=== PATIENT | female | born 1945 | race Two or more races ===

== ENCOUNTER 2017-11-08 08:48 | Outpatient (CLI) | payer OTHER ==
[2017-11-12] MEDS ORDERED: SYNTHROID75 MCG (23:51)
[2017-11-12] MEDS ORDERED: TOPROL XL100 M1 (23:52)
[2017-11-12] MEDS ORDERED: FORTAMET500 MG (23:52)
[2017-11-12] MEDS ORDERED: NORVASC2.5 M1 (23:52)
[2017-11-12] MEDS ORDERED: AVAPRO300 MG (23:52)
[2017-11-12] MEDS ORDERED: CRESTOR5 MG (23:53)
[2017-11-12] MEDS ORDERED: ASPIR 8181 MG (23:53)
[2017-11-13] MEDS ORDERED: NABUMETONE750 MG PO (01:41)
[2017-11-13] MEDS ORDERED: NORFLEX100MG PO (01:41)
== END 2017-11-08 08:58 | disposition home or self-care (01) ==
LOC: RAD 501 08:48
DX: J01.41 Acute recurrent pansinusitis (principal); J32.8 Other chronic sinusitis

== ENCOUNTER → 2017-11-12 | Emergency (ER) | payer OTHER ==
[~2017-11-12] VITALS: Ht 134.6 cm; Wt 55.8 kg
[~2017-11-12] MED LIST: ASPIR 8181 MG; AVAPRO300 MG; CRESTOR5 MG; FORTAMET500 MG; NABUMETONE750 MG PO; NORFLEX100MG PO; NORVASC2.5 M1; SYNTHROID75 MCG; TOPROL XL100 M1
== END | disposition home or self-care (01) ==
LOC: ER 23:19
DX: S39.011A Strain of muscle, fascia and tendon of abdomen, initial encounter (principal); X50.0XXA Overexertion from strenuous movement or load, initial encounter; Y93.89 Activity, other specified; Y92.89 Other specified places as the place of occurrence of the external cause; Y99.8 Other external cause status